=== PATIENT | female | born 1990 | race Caucasian/White ===

== ENCOUNTER 2020-09-06 16:52 | Inpatient (IN) | payer BC ==
[2020-09-06] MEDS ORDERED: hydrOXYzine HCl 25 MG Tab PO PRN (20:03)
[2020-09-06] MEDS ORDERED: Sodium Chloride 0.9% 10 ML Syringe FLUSH PRN (20:03)
[2020-09-06] MEDS ORDERED: Nalbuphine 10 MG/1 ML Vial IVPUSH PRN (20:03)
[2020-09-06] MEDS ORDERED: Lidocaine 1% 50 ML MDV INJECT ONE (20:03)
[2020-09-06] MEDS ORDERED: Ondansetron 4 MG/2 ML SDV IVPUSH PRN (20:03)
[2020-09-06] MEDS ORDERED: Calcium Carbonate 500 MG Tab.Chew PO PRN (20:03)
[2020-09-06] MEDS ORDERED: Oxytocin/Lactated Ringers 10 UNIT/1,000 ML BAG IV SCH (20:15)
--- NOTE | 2020-09-06 20:21 | PCM.LDHP ---
L&D History of Present Illness - General Date of Service: 09/06/20 Admit Problem/Dx: Patient Status Order with Admit Dx/Problem 09/06/20 20:03 Patient Status [ADT] Routine Admission Diagnosis/Problem Admission Diagnosis/Problem Term Source of Information: Patient - History of Present Illness Introduction:: Maritza is a 30-year-old female who presents today for elective induction of labor. She is feeling well today without complaints. She denies vaginal bleeding or leakage of fluid. No contractions. Baby is active. Denies headache, vision changes, chest pain, right upper quadrant pain, worsening leg swelling. - Related Data Allergies/Adverse Reactions: Allergies Allergy/AdvReac Type Severity Reaction Status Date / Time No Known Allergies Allergy Verified 09/06/20 19:56 Home Medications: Home Meds Aspirin [Nellie Chewable] 81 mg PO DAILY 09/06/20 [History] Calcium Carbonate [Calcium] 500 mg PO DAILY 09/06/20 [History] Cholecalciferol (Vitamin D3) [Vitamin D3] 2,000 unit PO DAILY 09/06/20 [History] Levothyroxine Sodium [Levothyroxine] 25 mcg PO DAILY 09/06/20 [History] No122/Iron/Folic Acid [ Multi Tablet] 1 each PO DAILY 09/06/20 [History] Past Medical History - Past Health History Medical/Surgical History: Denies Medical/Surgical History Cardiovascular History: Reports: None Respiratory History: Reports: None Gastrointestinal History: Reports: GERD 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 L&D Exam - Exam Exam: See Below - Vital Signs Weight: 236 lb 4.8 oz - OB Specific Movement: Active Heart Tones: Present Heart Tones per Min: 130 (Accelerations present, no decelerations) Heart Rate (FHR) Variability: Moderate (6-25 bmp) Presentation: Vertex (Confirmed by bedside ultrasound) - Chaparro Score Chaparro Score Cervix Position: Posterior Chaparro Score Consistency: Soft Chaparro Score Effacement: 0-30% Chaparro Score Dilation: 1-2 cm Chaparro Score Infant's Station: -3 Chaparro Score Total: 3 - Exam General: Alert, Oriented Neck: Supple, Trachea Midline Lungs: Clear to Auscultation, Normal Respiratory Effort Cardiovascular: Regular Rate, Regular Rhythm GI/Abdominal Exam: Normal Bowel Sounds, Soft, Non-Tender, Other (gravid) Extremities: Normal Inspection, Pedal Edema (Trace) Skin: Warm, Dry, Intact Psychiatric: Alert, Normal Affect, Normal Mood - Problem List (1) Encounter for induction of labor SNOMED Code(s): 021852266 ICD Code: Z34.90 - ENCNTR FOR SUPRVSN OF NORMAL , UNSP, UNSP TRIMESTER Status: Resolved Current Visit: Yes (2) Term SNOMED Code(s): 61667196 ICD Code: Z34.80 - ENCOUNTER FOR SUPRVSN OF NORMAL , UNSP TRIMESTER Status: Resolved Current Visit: Yes Problem List Initiated/Reviewed/Updated: Yes Orders Last 24hrs: Active Orders 24 hr Category Date Time Status Patient Status [ADT] Routine ADT 09/06/20 20:03 Active Activity as Tolerated [RC] PFP Care 09/06/20 20:03 Active Communication Order [RC] ASDIRECTED Care 09/06/20 20:03 Active Heart Tones [RC] ASDIRECTED Care 09/06/20 20:03 Active Non Stress Test [RC] PER UNIT ROUTINE Care 09/06/20 20:03 Active Notify Provider [RC] PFP Care 09/06/20 20:03 Active Notify Provider [RC] PRN Care 09/06/20 20:03 Active Peripheral IV Care [RC] . DIRECTED Care 09/06/20 20:03 Active Pump Management, Intrathecal [RC] ASDIRECTED Care 09/06/20 20:04 Active Urinary Catheter Assessment [RC] ASDIRECTED Care 09/06/20 20:03 Active Vital Signs [RC] PER UNIT ROUTINE Care 09/06/20 20:03 Active Regular Diet [DIET] Diet 09/06/20 Dinner Active BLOOD BANK HOLD SPECIMEN [BBK] Stat Lab 09/06/20 20:03 Ordered CBC WITH AUTO DIFF [HEME] Stat Lab 09/06/20 20:03 Ordered CORONAVIRUS COVID-19 LUIS ALBERTO [MOLEC] Stat Lab 09/06/20 20:05 Ordered RAPID PLASMA REAGIN,RPR [CHEM] Routine Lab 09/06/20 20:03 Ordered Calcium Carbonate [Tums] Med 09/06/20 20:03 Active 1,000 mg PO Q2H PRN Lactated Ringers [Ringers, Lactated] 1,000 ml Med 09/06/20 20:15 Active IV ASDIRECTED Nalbuphine [Nubain] Med 09/06/20 20:03 Active 10 mg IVPUSH Q2H PRN Ondansetron [Zofran] Med 09/06/20 20:03 Active 4 mg IVPUSH Q4H PRN Oxytocin/Lactated Ringers [Pitocin in LR 10 Units/1,000 Med 09/06/20 20:15 Active ML] 10 unit in 1,000 ml IV .CONTINUOUS Oxytocin/Lactated Ringers [Pitocin in LR 10 Units/1,000 Med 09/06/20 20:15 Active ML] 10 unit in 1,000 ml IV TITRATE Sodium Chloride 0.9% [Saline Flush] Med 09/06/20 20:03 Active 10 ml FLUSH ASDIRECTED PRN hydrOXYzine HCL [Atarax] Med 09/06/20 20:03 Active 25 mg PO ONETIME PRN miSOPROStoL [Cytotec] Med 09/06/20 21:00 Active 25 mcg VAG Q4HR Electronic Heart Tones Ext w TOCO [WOMSER] Oth 09/06/20 20:03 Ordered Routine Electronic Heart Tones Internal [WOMSER] Per Unit Oth 09/06/20 20:03 Ordered Routine Peripheral IV Insertion Adult [OM.PC] Routine Oth 09/06/20 20:03 Ordered Resuscitation Status Routine Resus Stat 09/06/20 20:03 Ordered Medication Orders Calcium Carbonate/Glycine (Tums) 1,000 mg PO Q2H PRN PRN Reason: Indigestion Hydroxyzine HCl (Atarax) 25 mg PO ONETIME PRN PRN Reason: Anxiety Oxytocin/Lactated Ringer's (Pitocin In Lr 10 Units/1,000 Ml) 10 unit in 1,000 mls @ 12 mls/hr IV TITRATE RAMÓN; Protocol Oxytocin/Lactated Ringer's (Pitocin In Lr 10 Units/1,000 Ml) 10 unit in 1,000 mls @ 500 mls/hr IV .CONTINUOUS RAMÓN Lactated Ringer's (Ringers, Lactated) 1,000 mls @ 100 mls/hr IV ASDIRECTED RAMÓN Misoprostol (Cytotec) 25 mcg VAG Q4HR RAMÓN Nalbuphine HCl (Nubain) 10 mg IVPUSH Q2H PRN PRN Reason: Pain Ondansetron HCl (Zofran) 4 mg IVPUSH Q4H PRN PRN Reason: Nausea/Vomiting Sodium Chloride (Saline Flush) 10 ml FLUSH ASDIRECTED PRN PRN Reason: Keep Vein Open Assessment/Plan Comment:: 30-year-old G2, P1 admitted for elective induction of labor at term. Admit to labor and delivery. EFM/toco and monitor for progress of labor. Cytotec for cervical ripening, 25 mg vaginally. Epidural when desired. Anticipate vaginal delivery. The patient was comfortable with the above plan and all questions were answered. Katharine Brizuela MD Family Medicine
[2020-09-06] MEDS: Misoprostol 25 MCG (1/4 of 100 MCG) Tab VAG SCH (20:32)
[2020-09-07] MEDS ORDERED: Lidocaine 1.5% with EPINEPHrine 1:200,000 5 ML Amp ONE
[2020-09-07] MEDS: Oxytocin/Lactated Ringers 10 UNIT/1,000 ML BAG IV SCH ×2 (02:27→15:54)
[2020-09-07] MEDS: Lactated Ringers 1,000 ML IV SCH ×3 (02:27→07:05)
[2020-09-07] MEDS: Misoprostol 25 MCG (1/4 of 100 MCG) Tab VAG SCH (02:35)
[2020-09-07] MEDS ORDERED: fentaNYL 100 MCG/2 ML SDV EPIDUR PRN (05:53)
[2020-09-07] MEDS ORDERED: ePHEDrine 50 MG/ML SDV IVPUSH PRN (05:53)
[2020-09-07] MEDS ORDERED: diphenhydrAMINE 50 MG/ML SDV IVPUSH PRN (05:53)
[2020-09-07] MEDS ORDERED: fentaNYL 100 MCG/2 ML SDV ONE (05:55)
[2020-09-07] MEDS: Bupivacaine/fentaNYL/NS 100 ML Bag EPIDUR PRN ×2 (06:06→15:54)
--- NOTE | 2020-09-07 06:42 | PCM.PREANE ---
Preanesthetic Assessment - Procedure Proposed Procedure: Continuous Labor epidural - Anesthesia/Transfusion/Family Hx Anesthesia History: Prior Anesthesia Without Reaction Other Type of Anesthesia Reaction Comment: Pt has only had epidural anesthesia Transfusion History: No Prior Transfusion(s) - Review of Systems General: No Symptoms Pulmonary: No Symptoms Cardiovascular: No Symptoms Gastrointestinal: No Symptoms Neurological: No Symptoms Other: Reports: None - Physical Assessment Vital Signs: Last Vital Signs Temp 97.0 F 09/06/20 20:03 Pulse 95 09/06/20 20:03 Resp 16 09/06/20 20:03 BP 132/80 09/06/20 20:03 Pulse Ox 95 09/06/20 20:03 Height: 1.68 m Weight: 107.184 kg ASA Class: 2 Mental Status: Alert & Oriented x3 Airway Class: Mallampati = 2 Dentition: Reports: Normal Dentition Thyro-Mental Finger Breadths: 3 Mouth Opening Finger Breadths: 3 ROM/Head Extension: Full Lungs: Clear to Auscultation, Normal Respiratory Effort Cardiovascular: Regular Rate, Regular Rhythm - Lab Values: Laboratory Last Values WBC 10.25 K/mm3 (3.98-10.04) H 09/06/20 20:20 RBC 4.04 M/mm3 (3.98-5.22) 09/06/20 20:20 Hgb 12.2 gm/dl (11.2-15.7) 09/06/20 20:20 Hct 36.5 % (34.1-44.9) 09/06/20 20:20 MCV 90.3 fl (79.4-94.8) 09/06/20 20:20 MCH 30.2 pg (25.6-32.2) 09/06/20 20:20 MCHC 33.4 g/dl (32.2-35.5) 09/06/20 20:20 RDW Std Deviation 42.9 fL (36.4-46.3) 09/06/20 20:20 Plt Count 173 K/mm3 (182-369) L 09/06/20 20:20 MPV 11.2 fl (9.4-12.3) 09/06/20 20:20 Neut % (Auto) 64.7 % (34.0-71.1) 09/06/20 20:20 Lymph % (Auto) 21.5 % (19.3-51.7) 09/06/20 20:20 [place] % (Auto) 8.6 % (4.7-12.5) 09/06/20 20:20 Eos % (Auto) 1.5 (0.7-5.8) 09/06/20 20:20 Baso % (Auto) 0.3 % (0.1-1.2) 09/06/20 20:20 Neut # (Auto) 6.64 K/mm3 (1.56-6.13) H 09/06/20 20:20 Lymph # (Auto) 2.20 K/mm3 (1.18-3.74) 09/06/20 20:20 [place] # (Auto) 0.88 K/mm3 (0.24-0.36) H 09/06/20 20:20 Eos # (Auto) 0.15 K/mm3 (0.04-0.36) 09/06/20 20:20 Baso # (Auto) 0.03 K/mm3 (0.01-0.08) 09/06/20 20:20 Manual Slide Review Normal smear 09/06/20 20:20 RPR Non-reactive (NONREACTIVE) 09/06/20 20:20 SARS-CoV-2 RNA (LIUS ALBERTO) Negative (NEGATIVE) 09/06/20 20:17 - Allergies Allergies/Adverse Reactions: Allergies Allergy/AdvReac Type Severity Reaction Status Date / Time No Known Allergies Allergy Verified 09/06/20 19:56 - Acknowledgements Anesthesia Type Planned: Epidural Pt an Appropriate Candidate for the Planned Anesthesia: Yes Alternatives and Risks of Anesthesia Discussed w Pt/Guardian: Yes Pt/Guardian Understands and Agrees with Anesthesia Plan: Yes PreAnesthesia Questionnaire - Past Health History Medical/Surgical History: Denies Medical/Surgical History Other HEENT History: Wears glasses Cardiovascular History: Reports: None Respiratory History: Reports: None Gastrointestinal History: Reports: GERD 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: Neurological History: Reports: Headaches, Chronic Psychiatric History: Reports: Anxiety, Depression Other Psychiatric History: Pt reports she had anxiety and depression after her first child was born, denies anxiety or depression at this time Endocrine/Metabolic History: Reports: Hypothyroidism Hematologic History: Reports: Anemia Other Hematologic History: Pt reports she had anemia after first delivery r/t PP blood loss - History Comment History Comment: zantac for heart burn - SUBSTANCE USE Tobacco Use Status *Q: Never Tobacco User Recreational Drug Use History: No - HOME MEDS Home Medications: Home Meds Aspirin [Nellie Chewable] 81 mg PO DAILY 09/06/20 [History] Calcium Carbonate [Calcium] 500 mg PO DAILY 09/06/20 [History] Cholecalciferol (Vitamin D3) [Vitamin D3] 2,000 unit PO DAILY 09/06/20 [History] Levothyroxine Sodium [Levothyroxine] 25 mcg PO DAILY 09/06/20 [History] No122/Iron/Folic Acid [ Multi Tablet] 1 each PO DAILY 09/06/20 [History] - CURRENT (IN HOUSE) MEDS Current Meds: Current Medications Calcium Carbonate/Glycine (Tums) 1,000 mg PO Q2H PRN PRN Reason: Indigestion Diphenhydramine HCl (Benadryl) 25 mg IVPUSH Q6H PRN PRN Reason: pruritis Ephedrine Sulfate (Ephedrine Sulfate) 5 mg IVPUSH ASDIRECTED PRN PRN Reason: Hypotension Fentanyl (Sublimaze) 100 mcg EPIDUR Q3H PRN PRN Reason: Pain Last Admin: 09/07/20 06:06 Dose: 100 mcg Documented by: Fentanyl/Bupivacaine HCl (Fentanyl/Bupivacaine/Ns 2 Mcg-0.125% 100 Ml) 100 ml EPIDUR ASDIRECTED PRN PRN Reason: Pain Last Admin: 09/07/20 06:06 Dose: 100 ml Documented by: Hydroxyzine HCl (Atarax) 25 mg PO ONETIME PRN PRN Reason: Anxiety Oxytocin/Lactated Ringer's (Pitocin In Lr 10 Units/1,000 Ml) 10 unit in 1,000 mls @ 12 mls/hr IV TITRATE RAMÓN; Protocol Last Titration: 09/07/20 06:19 Dose: 10 munits/min, 60 mls/hr Documented by: Oxytocin/Lactated Ringer's (Pitocin In Lr 10 Units/1,000 Ml) 10 unit in 1,000 mls @ 500 mls/hr IV .CONTINUOUS RAMÓN Lactated Ringer's (Ringers, Lactated) 1,000 mls @ 100 mls/hr IV ASDIRECTED RAMÓN Last Admin: 09/07/20 05:54 Dose: 999 mls/hr Documented by: Nalbuphine HCl (Nubain) 10 mg IVPUSH Q2H PRN PRN Reason: Pain Ondansetron HCl (Zofran) 4 mg IVPUSH Q4H PRN PRN Reason: Nausea/Vomiting Sodium Chloride (Saline Flush) 10 ml FLUSH ASDIRECTED PRN PRN Reason: Keep Vein Open Discontinued Medications Fentanyl (Sublimaze) Confirm Administered Dose 100 mcg .ROUTE .STK-MED ONE Stop: 09/07/20 05:56 Lidocaine HCl (Xylocaine 1%) 20 ml INJECT ONETIME ONE Stop: 09/06/20 20:04 Misoprostol (Cytotec) 25 mcg VAG Q4HR RAMÓN Last Admin: 09/07/20 02:35 Dose: Not Given Documented by:
--- NOTE | 2020-09-07 08:11 | PCM.PNLD ---
Labor Progress Note - VS & Meds Vital Signs: Last Vital Signs Temp 97.0 F 09/06/20 20:03 Pulse 95 09/06/20 20:03 Resp 16 09/06/20 20:03 BP 132/80 09/06/20 20:03 Pulse Ox 95 09/06/20 20:03 Active Medications: Current Medications Calcium Carbonate/Glycine (Tums) 1,000 mg PO Q2H PRN PRN Reason: Indigestion Diphenhydramine HCl (Benadryl) 25 mg IVPUSH Q6H PRN PRN Reason: pruritis Ephedrine Sulfate (Ephedrine Sulfate) 5 mg IVPUSH ASDIRECTED PRN PRN Reason: Hypotension Fentanyl (Sublimaze) 100 mcg EPIDUR Q3H PRN PRN Reason: Pain Last Admin: 09/07/20 06:06 Dose: 100 mcg Documented by: Fentanyl/Bupivacaine HCl (Fentanyl/Bupivacaine/Ns 2 Mcg-0.125% 100 Ml) 100 ml EPIDUR ASDIRECTED PRN PRN Reason: Pain Last Admin: 09/07/20 06:06 Dose: 100 ml Documented by: Hydroxyzine HCl (Atarax) 25 mg PO ONETIME PRN PRN Reason: Anxiety Oxytocin/Lactated Ringer's (Pitocin In Lr 10 Units/1,000 Ml) 10 unit in 1,000 mls @ 12 mls/hr IV TITRATE RAMÓN; Protocol Last Titration: 09/07/20 06:19 Dose: 10 munits/min, 60 mls/hr Documented by: Oxytocin/Lactated Ringer's (Pitocin In Lr 10 Units/1,000 Ml) 10 unit in 1,000 mls @ 500 mls/hr IV .CONTINUOUS RAMÓN Lactated Ringer's (Ringers, Lactated) 1,000 mls @ 100 mls/hr IV ASDIRECTED RAMÓN Last Admin: 09/07/20 07:05 Dose: 100 mls/hr Documented by: Nalbuphine HCl (Nubain) 10 mg IVPUSH Q2H PRN PRN Reason: Pain Ondansetron HCl (Zofran) 4 mg IVPUSH Q4H PRN PRN Reason: Nausea/Vomiting Sodium Chloride (Saline Flush) 10 ml FLUSH ASDIRECTED PRN PRN Reason: Keep Vein Open Discontinued Medications Fentanyl (Sublimaze) Confirm Administered Dose 100 mcg .ROUTE .STK-MED ONE Stop: 09/07/20 05:56 Last Admin: 09/07/20 07:33 Dose: Not Given Documented by: Lidocaine HCl (Xylocaine 1%) 20 ml INJECT ONETIME ONE Stop: 09/06/20 20:04 Misoprostol (Cytotec) 25 mcg VAG Q4HR RAMÓN Last Admin: 09/07/20 02:35 Dose: Not Given Documented by: - Monitoring Heart Rate (FHR) Per Doppler: 135 (+accels/no decels) Heart Rate (FHR) Variability: Moderate (6-25 bmp) - Vaginal Exam Dilation (cm): 3.5 Effacement (Percent): 80 Station: -1 Cervical Position: Midposition - Labor Progress (Free Text) Labor Progress: Maritza is comfortable with epidural. no complaints at this time. AROM completed for clear fluid. No complications. Patient and fetus tolerated the procedure well. Continue current cares. Anticipate vaginal delivery. Katharine Brizuela MD Family Medicine
--- NOTE | 2020-09-07 13:40 | PCM.SN.2 ---
- Free Text/Narrative Note: 09/07/2020 Bladimir Oleary is comfortable with her epidural. No complaints at this time. She has been able to get some rest this afternoon. VSS Cervix not examined, last checked 2 hours ago per nursing and 4 cm Category 1 strip Continue current cares, anticipate vaginal delivery. Katharine Brizuela MD Family Medicine
--- NOTE | 2020-09-07 16:22 | PCM.SN.2 ---
- Free Text/Narrative Note: 09/07/2020 1600 comfortable with epidural for the most part. more pelvic pressure. vss, one elevated BP systolic 142. no sx preE. cervix 8/100/+1 category 2 strip for intermittent early and variable decelerations continue current cares. anticipate vaginal delivery Katharine Brizuela MD Family Medicine
[2020-09-07] MEDS ORDERED: Misoprostol 200 MCG Tab ONE (17:07)
--- NOTE | 2020-09-07 17:51 | PCM.DEL ---
L & D Note - General Info Date of Service: 09/07/20 - Delivery Note Labor: Induced by Oxytocin Cervical Ripening Method: Misoprostil, Oxytocin Delivery Outcome: Livebirth Delivery Method: Spontaneous Vaginal Delivery-Single Infant Delivery Mode: Spontaneous Presentation: Left Occiput Anterior (MAE) Nuchal Cord: Present (loose, delivered through) Anesthesia Type: Epidural Amniotic Fluid Description: Clear Episiotomy Type: None Laceration: 2nd Degree Suture type: Vicryl Suture size: 3-0 Placenta: Intact, Spontaneous Cord: 3 Vessels Estimated Blood Loss: 500 Resuscitation Needed: No [place]: Suctioned, Bulb Syringe, Stimulated, Warmed, [place] Used Score 1 min: 7 Score 5 min: 9 Post Delivery Events: Hemorrhage (resolved with uterine massage, 800mcg rectal Cytotec given) Second Stage Interventions: Reports: Encouragement Given, Pushing Effectively, Pushing, Stirrups/Leg Supports Delivery Comments (Free Text/Narrative):: Maritza was admitted for elective induction at 39 wks 6 days. Cervical ripening with Cytotec followed by induction with pitocin. She did receive epidural analgesia. She progessed to complete without complication. Head delivered spontaneously with shawl cord, loose, delivered through. Body delivered without incident. Delayed cord clamping x 60 seconds. Placenta delivered spontaneously and intact. Small 2nd degree laceration repaired in usual fashion. More than average blood loss with EBL 500ml, resolved with uterine massage, IV pitocin. Rectal Cytotec, 800mcg given. - General Info Date of Service: 09/07/20 - Patient Data Vitals - Most Recent: Last Vital Signs Temp 97.0 F 09/06/20 20:03 Pulse 95 09/06/20 20:03 Resp 16 09/06/20 20:03 BP 132/80 09/06/20 20:03 Pulse Ox 95 09/06/20 20:03 Weight - Most Recent: 236 lb 4.8 oz I&O - Last 24 Hours: Intake & Output 09/07/20 09/07/20 09/07/20 06:59 14:59 22:59 Intake Total 1999 Balance 1999 Lab Results Last 24 Hours: Laboratory Results - last 24 hr 09/06/20 09/06/20 09/06/20 Range/Units 20:17 20:20 20:20 WBC 10.25 H (3.98-10.04) K/mm3 RBC 4.04 (3.98-5.22) M/mm3 Hgb 12.2 (11.2-15.7) gm/dl Hct 36.5 (34.1-44.9) % MCV 90.3 (79.4-94.8) fl MCH 30.2 (25.6-32.2) pg MCHC 33.4 (32.2-35.5) g/dl RDW Std Deviation 42.9 (36.4-46.3) fL Plt Count 173 L (182-369) K/mm3 MPV 11.2 (9.4-12.3) fl Neut % (Auto) 64.7 (34.0-71.1) % Lymph % (Auto) 21.5 (19.3-51.7) % [place] % (Auto) 8.6 (4.7-12.5) % Eos % (Auto) 1.5 (0.7-5.8) Baso % (Auto) 0.3 (0.1-1.2) % Neut # (Auto) 6.64 H (1.56-6.13) K/mm3 Lymph # (Auto) 2.20 (1.18-3.74) K/mm3 [place] # (Auto) 0.88 H (0.24-0.36) K/mm3 Eos # (Auto) 0.15 (0.04-0.36) K/mm3 Baso # (Auto) 0.03 (0.01-0.08) K/mm3 Manual Slide Review Normal smear RPR Non-reactive (NONREACTIVE) SARS-CoV-2 RNA (LUIS ALBERTO) Negative (NEGATIVE) Med Orders - Current: Current Medications Calcium Carbonate/Glycine (Tums) 1,000 mg PO Q2H PRN PRN Reason: Indigestion Diphenhydramine HCl (Benadryl) 25 mg IVPUSH Q6H PRN PRN Reason: pruritis Ephedrine Sulfate (Ephedrine Sulfate) 5 mg IVPUSH ASDIRECTED PRN PRN Reason: Hypotension Fentanyl (Sublimaze) 100 mcg EPIDUR Q3H PRN PRN Reason: Pain Last Admin: 09/07/20 06:06 Dose: 100 mcg Documented by: Fentanyl/Bupivacaine HCl (Fentanyl/Bupivacaine/Ns 2 Mcg-0.125% 100 Ml) 100 ml EPIDUR ASDIRECTED PRN PRN Reason: Pain Last Admin: 09/07/20 15:54 Dose: 100 ml Documented by: Hydroxyzine HCl (Atarax) 25 mg PO ONETIME PRN PRN Reason: Anxiety Oxytocin/Lactated Ringer's (Pitocin In Lr 10 Units/1,000 Ml) 10 unit in 1,000 mls @ 12 mls/hr IV TITRATE RAMÓN; Protocol Last Admin: 09/07/20 15:54 Dose: 18 munits/min, 108 mls/hr Documented by: Oxytocin/Lactated Ringer's (Pitocin In Lr 10 Units/1,000 Ml) 10 unit in 1,000 mls @ 500 mls/hr IV .CONTINUOUS RAMÓN Lactated Ringer's (Ringers, Lactated) 1,000 mls @ 100 mls/hr IV ASDIRECTED RAMÓN Last Admin: 09/07/20 07:05 Dose: 100 mls/hr Documented by: Nalbuphine HCl (Nubain) 10 mg IVPUSH Q2H PRN PRN Reason: Pain Ondansetron HCl (Zofran) 4 mg IVPUSH Q4H PRN PRN Reason: Nausea/Vomiting Sodium Chloride (Saline Flush) 10 ml FLUSH ASDIRECTED PRN PRN Reason: Keep Vein Open Discontinued Medications Fentanyl (Sublimaze) Confirm Administered Dose 100 mcg .ROUTE .STK-MED ONE Stop: 09/07/20 05:56 Last Admin: 09/07/20 07:33 Dose: Not Given Documented by: Lidocaine HCl (Xylocaine 1%) 20 ml INJECT ONETIME ONE Stop: 09/06/20 20:04 Misoprostol (Cytotec) 25 mcg VAG Q4HR RAMÓN Last Admin: 09/07/20 02:35 Dose: Not Given Documented by: Misoprostol (Cytotec) Confirm Administered Dose 800 mcg .ROUTE .STK-MED ONE Stop: 09/07/20 17:08 - Problem List & Annotations (1) Encounter for induction of labor SNOMED Code(s): 909216452 Code(s): Z34.90 - ENCNTR FOR SUPRVSN OF NORMAL , UNSP, UNSP TRIMESTER Status: Resolved Current Visit: Yes (2) Term SNOMED Code(s): 55575694 Code(s): Z34.80 - ENCOUNTER FOR SUPRJEREMY OF NORMAL , UNSP TRIMESTER Status: Resolved Current Visit: Yes - Problem List Review Problem List Initiated/Reviewed/Updated: Yes - My Orders Last 24 Hours: My Active Orders 09/06/20 Dinner Regular Diet [DIET] 09/06/20 20:03 Patient Status [ADT] Routine Activity as Tolerated [RC] PFP Communication Order [RC] ASDIRECTED Heart Tones [RC] ASDIRECTED Notify Provider [RC] PFP Notify Provider [RC] PRN Peripheral IV Care [RC] Q2HR Urinary Catheter Assessment [RC] ASDIRECTED BLOOD BANK HOLD SPECIMEN [BBK] Stat Calcium Carbonate [Tums] 1,000 mg PO Q2H PRN Nalbuphine [Nubain] 10 mg IVPUSH Q2H PRN Ondansetron [Zofran] 4 mg IVPUSH Q4H PRN Sodium Chloride 0.9% [Saline Flush] 10 ml FLUSH ASDIRECTED PRN hydrOXYzine HCL [Atarax] 25 mg PO ONETIME PRN Electronic Heart Tones Ext w TOCO [WOMSER] Routine Electronic Heart Tones Internal [WOMSER] Per Unit Routine Peripheral IV Insertion Adult [OM.PC] Routine Resuscitation Status Routine 09/06/20 20:04 Pump Management, Intrathecal [RC] ASDIRECTED 09/06/20 20:15 Lactated Ringers [Ringers, Lactated] 1,000 ml IV ASDIRECTED Oxytocin/Lactated Ringers [Pitocin in LR 10 Units/1,000 ML] 10 unit in 1,000 ml IV .CONTINUOUS Oxytocin/Lactated Ringers [Pitocin in LR 10 Units/1,000 ML] 10 unit in 1,000 ml IV TITRATE 09/07/20 17:23 Patient Status Manage Transfer [TRANSFER] Routine - Plan Plan:: routine cares with exception of checking H/H at 2000 due to excessive blood loss. monitor BPs due to hx of PreE in prior . Katharine Brizuela MD Family Medicine
[2020-09-07] MEDS ORDERED: Famotidine 20 MG Tab PO PRN (18:19)
[2020-09-07] MEDS ORDERED: Benzocaine/Menthol 20%-0.5% Spray 56 GM Canister TOP PRN (18:19)
[2020-09-07] MEDS ORDERED: Misoprostol 200 MCG Tab RECTAL PRN (18:19)
[2020-09-07] MEDS ORDERED: Acetaminophen 325 MG Tab PO PRN (18:19)
[2020-09-07] MEDS ORDERED: Hydrocortisone Acetate 25 MG Supp RECTAL PRN (18:19)
[2020-09-07] MEDS: Ibuprofen 600 MG Tab PO PRN (20:10)
[2020-09-07] MEDS: Witch Hazel Medicated Pads 40/Jar TOP PRN (20:11)
[2020-09-08] MEDS: Ibuprofen 600 MG Tab PO PRN (04:30)
[2020-09-08] MEDS ORDERED: Polyethylene Glycol 3350 Powder 17 GM Packet PO PRN (08:48)
[2020-09-08] MEDS ORDERED: Docusate Sodium 100 MG Cap PO PRN (08:48)
--- NOTE | 2020-09-08 08:55 | PCM.PNPP ---
- General Info Date of Service: 09/08/20 Admission Dx/Problem (Free Text): Patient Status Order with Admit Dx/Problem 09/06/20 20:03 Patient Status [ADT] Routine Admission Diagnosis/Problem Admission Diagnosis/Problem Term Subjective Update: Maritza is day 1 status post electively induced . She is feeling fairly well today without complaints. Cramping is controlled with Tylenol and ibuprofen. Lochia is mild to moderate. She was able to get some rest overnight. Breast-feeding is going fairly well. Maeve fed well for two long nursing sessions. Urinating without difficulty. Passing gas. No bowel movement. She desires Colace and as needed MiraLAX to avoid constipation. Functional Status: Reports: Pain Controlled - Review of Systems General: Reports: No Symptoms HEENT: Reports: No Symptoms Pulmonary: Reports: No Symptoms Cardiovascular: Reports: No Symptoms Gastrointestinal: Reports: No Symptoms Genitourinary: Reports: No Symptoms Musculoskeletal: Reports: No Symptoms Skin: Reports: No Symptoms Neurological: Reports: No Symptoms Psychiatric: Reports: No Symptoms - General Info Date of Service: 09/08/20 - Patient Data Vital Signs - Most Recent: Last Vital Signs Temp 97.3 F 09/08/20 02:39 Pulse 77 09/08/20 02:39 Resp 16 09/08/20 02:39 BP 128/70 09/08/20 02:39 Pulse Ox 100 09/08/20 02:39 Weight - Most Recent: 236 lb 4.8 oz I&O - Last 24 Hours: Intake & Output 09/07/20 09/08/20 09/08/20 22:59 06:59 14:59 Intake Total 2500 Output Total 1300 Balance 1200 Lab Results - Last 24 Hours: Laboratory Results - last 24 hr 09/07/20 Range/Units 20:01 Hgb 12.2 (11.2-15.7) gm/dl Hct 35.7 (34.1-44.9) % Med Orders - Current: Current Medications Acetaminophen (Tylenol) 975 mg PO Q6H PRN PRN Reason: mild pain or fever Benzocaine/Menthol (Dermoplast Pain Relief [place]) 0 gm TOP ASDIRECTED PRN PRN Reason: Perineal Comfort Measure Last Admin: 09/07/20 20:12 Dose: 1 can Documented by: Famotidine (Pepcid) 20 mg PO BID PRN PRN Reason: Heartburn Hydrocortisone Acetate (Anucort-Hc) 25 mg RECTAL BID PRN PRN Reason: Hemorrhoid pain Ibuprofen (Motrin) 600 mg PO Q6H PRN PRN Reason: Mild pain or fever Last Admin: 09/08/20 04:30 Dose: 600 mg Documented by: Misoprostol (Cytotec) 800 mcg RECTAL ONETIME PRN PRN Reason: excessive vaginal bleeding [place] (Tucks) 1 pad TOP ASDIRECTED PRN PRN Reason: Pain Last Admin: 09/07/20 20:11 Dose: 1 can Documented by: Discontinued Medications Calcium Carbonate/Glycine (Tums) 1,000 mg PO Q2H PRN PRN Reason: Indigestion Diphenhydramine HCl (Benadryl) 25 mg IVPUSH Q6H PRN PRN Reason: pruritis Ephedrine Sulfate (Ephedrine Sulfate) 5 mg IVPUSH ASDIRECTED PRN PRN Reason: Hypotension Fentanyl (Sublimaze) 100 mcg EPIDUR Q3H PRN PRN Reason: Pain Last Admin: 09/07/20 06:06 Dose: 100 mcg Documented by: Fentanyl (Sublimaze) Confirm Administered Dose 100 mcg .ROUTE .[facility]-MED ONE Stop: 09/07/20 05:56 Last Admin: 09/07/20 07:33 Dose: Not Given Documented by: Fentanyl/Bupivacaine HCl (Fentanyl/Bupivacaine/Ns 2 Mcg-0.125% 100 Ml) 100 ml EPIDUR ASDIRECTED PRN PRN Reason: Pain Last Admin: 09/07/20 15:54 Dose: 100 ml Documented by: Hydroxyzine HCl (Atarax) 25 mg PO ONETIME PRN PRN Reason: Anxiety Oxytocin/Lactated Ringer's (Pitocin In Lr 10 Units/1,000 Ml) 10 unit in 1,000 mls @ 12 mls/hr IV TITRATE RAMÓN; Protocol Last Admin: 09/07/20 15:54 Dose: 18 munits/min, 108 mls/hr Documented by: Oxytocin/Lactated Ringer's (Pitocin In Lr 10 Units/1,000 Ml) 10 unit in 1,000 mls @ 500 mls/hr IV .CONTINUOUS RAMÓN Lactated Ringer's (Ringers, Lactated) 1,000 mls @ 100 mls/hr IV ASDIRECTED RAMÓN Last Admin: 09/07/20 07:05 Dose: 100 mls/hr Documented by: Lidocaine HCl (Xylocaine 1%) 20 ml INJECT ONETIME ONE Stop: 09/06/20 20:04 Misoprostol (Cytotec) 25 mcg VAG Q4HR [facility] Last Admin: 09/07/20 02:35 Dose: Not Given Documented by: Misoprostol (Cytotec) Confirm Administered Dose 800 mcg .ROUTE .[facility]-MED ONE Stop: 09/07/20 17:08 Last Admin: 09/07/20 17:07 Dose: 800 mcg Documented by: Nalbuphine HCl (Nubain) 10 mg IVPUSH Q2H PRN PRN Reason: Pain Ondansetron HCl (Zofran) 4 mg IVPUSH Q4H PRN PRN Reason: Nausea/Vomiting Sodium Chloride (Saline Flush) 10 ml FLUSH ASDIRECTED PRN PRN Reason: Keep Vein Open - Interaction Disposition, : [place] at Bedside Feeding: Breastfed Infant; Nursed Well Support Person: - Recovery Exam Fundal Tone: Firm Fundal Level: 1 Fingerbreadths Below Umbilicus Fundal Placement: Midline Lochia Amount: Small Lochia Color: Rubra/Red Perineum Description: Intact, Minimal Bruising/Swelling Episiotomy/Laceration: None Bladder Status: Voiding - Exam General: Alert, Oriented Lungs: Clear to Auscultation, Normal Respiratory Effort Cardiovascular: Regular Rate, Regular Rhythm GI/Abdominal Exam: Normal Bowel Sounds, Soft, Non-Tender, No Distention Extremities: Normal Inspection, Normal Range of Motion, Non-Tender, Normal Capillary Refill, Pedal Edema (Trace bilaterally) Skin: Warm, Dry, Intact Wound/Incisions: Healing Well Neurological: No New Focal Deficit Psy/Mental Status: Alert, Normal Affect, Normal Mood - Problem List & Annotations (1) Encounter for induction of labor SNOMED Code(s): 996266543 Code(s): Z34.90 - ENCNTR FOR SUPRVSN OF NORMAL , UNSP, UNSP TRIMESTER Status: Resolved Current Visit: Yes (2) Term SNOMED Code(s): 92977827 Code(s): Z34.80 - ENCOUNTER FOR SUPRVSN OF NORMAL , UNSP TRIMESTER Status: Resolved Current Visit: Yes (3) Normal spontaneous vaginal delivery SNOMED Code(s): 43662217, 193725948 Code(s): O80 - ENCOUNTER FOR FULL-TERM UNCOMPLICATED DELIVERY Status: Acute Priority: High Current Visit: Yes - Problem List Review Problem List Initiated/Reviewed/Updated: Yes - My Orders Last 24 Hours: My Active Orders 09/07/20 18:19 Acetaminophen [TylenoL] 975 mg PO Q6H PRN Benzocaine/Menthol [Dermoplast Pain Relief [place]] See Dose Instructions TOP ASDIRECTED PRN Famotidine [Pepcid] 20 mg PO BID PRN Hydrocortisone Acetate [Anucort-HC] 25 mg RECTAL BID PRN Ibuprofen [Motrin] 600 mg PO Q6H PRN miSOPROStoL [Cytotec] 800 mcg RECTAL ONETIME PRN witch Aniyah [Tucks] 1 pad TOP ASDIRECTED PRN Heat Therapy [OM.PC] PRN 09/07/20 18:19 Activity as Tolerated [RC] PER UNIT ROUTINE Notify Provider Vital Signs [RC] ASDIRECTED Vital Signs [RC] ,,, Assess Lochia [WOMSER] Per Unit Routine Assess Uterine Involution [WOMSER] Per Unit Routine Breast Pump [WOMSER] Per Unit Routine Medication Administration Instruction [OM.PC] Routine Perineal Care [OM.PC] Per Unit Routine Peripheral IV Discontinue [OM.PC] Routine Sitz Bath [OM.PC] Per Unit Routine 09/08/20 08:48 Docusate Sodium [Colace] 200 mg PO BID PRN 09/08/20 08:48 polyethylene glycoL 3350 [MiraLAX] 17 gm PO DAILY PRN 09/08/20 18:19 Heat Therapy [OM.PC] PRN - Assessment Assessment:: 30-year-old G2 now P2 female PPD 1 status post . Doing well. - Plan Plan:: routine cares. Add Colace and as needed MiraLAX for constipation. She will see how feedings go today and decide this afternoon if she would like a 24-hour discharge. Katharine Brizuela MD Family Medicine
[2020-09-08] MEDS ORDERED: Ibuprofen 800 MG Tab PO PRN (10:30)
--- NOTE | 2020-09-08 10:48 | PCM48HPAN ---
Post Anesthesia Note - EVALUATION WITHIN 48HRS OF ANESTHETIC Vital Signs in Normal Range: Yes Patient Participated in Evaluation: Yes Respiratory Function Stable: Yes Airway Patent: Yes Cardiovascular Function Stable: Yes Hydration Status Stable: Yes Pain Control Satisfactory: Yes Nausea and Vomiting Control Satisfactory: Yes Mental Status Recovered: Yes (no complaints) Vital Signs: Last Vital Signs Temp 97.3 F 09/08/20 02:39 Pulse 77 09/08/20 02:39 Resp 16 09/08/20 02:39 BP 128/70 09/08/20 02:39 Pulse Ox 100 09/08/20 02:39
[2020-09-08] MEDS: Witch Hazel Medicated Pads 40/Jar TOP PRN (19:53)
== END 2020-09-08 20:21 | disposition home or self-care (01) | DRG 560 ==
LOC: JD.OB 16:52 → OBSVTOIN 09-07 16:52 → JD.OB 09-07 16:53
PROVIDERS: ADMIT Family Medicine; ATTEND Family Medicine
PROC: 10E0XZZ Delivery of Products of Conception, External Approach (ICD-10-PCS; principal; 2020-09-07)
PROC: 0KQM0ZZ Repair Perineum Muscle, Open Approach (ICD-10-PCS; 2020-09-07)
PROC: 3E033VJ Introduction of Other Hormone into Peripheral Vein, Percutaneous Approach (ICD-10-PCS; 2020-09-07)
PROC: 3E0P7VZ Introduction of Hormone into Female Reproductive, Via Natural or Artificial Opening (ICD-10-PCS; 2020-09-07)
PROC: 3E0R3BZ Introduction of Anesthetic Agent into Spinal Canal, Percutaneous Approach (ICD-10-PCS; 2020-09-07)
DX: O99.62 Diseases of the digestive system complicating childbirth (principal); K21.9 Gastro-esophageal reflux disease without esophagitis; O99.284 Endocrine, nutritional and metabolic diseases complicating childbirth; E03.9 Hypothyroidism, unspecified; Z37.0 Single live birth; O70.1 Second degree perineal laceration during delivery; O69.81X0 Labor and delivery complicated by cord around neck, without compression, not applicable or unspecified; Z3A.39 39 weeks gestation of pregnancy; Z20.822 Contact with and (suspected) exposure to COVID-19; K59.00 Constipation, unspecified
CPT/HCPCS: 01967; 36415; 51702; 59025; 59409; 85014; 85018; 85025; 86592; A9270-GY; J2590; J3010; J7120; U0002